=== PATIENT | female | born 1960 | race Two or more races ===

== ENCOUNTER 2019-11-01 11:58 | Inpatient (IN) | payer OTHER ==
[~2019-11-01] VITALS: Ht 160 cm; Wt 72.6 kg
[2019-11-01] MEDS ORDERED: CLONIDINE (12:21)
[2019-11-01] MEDS ORDERED: AMBIEN5 MG (12:22)
[2019-11-01] MEDS ORDERED: TOPROL XL25 M1 (12:22)
[2019-11-01] MEDS ORDERED: PROSCAR5 MG (12:23)
[2019-11-01] MEDS ORDERED: ASPIR 8181 MG (12:23)
[2019-11-05] MEDS ORDERED: CLONIDINE HCL0.1 MG (08:55)
[2019-11-09] MEDS ORDERED: TOPROL XL50 M1 PO (12:37)
[2019-11-09] MEDS ORDERED: ECOTRIN81 MG PO (12:39)
[2019-11-09] MEDS ORDERED: POLY119PG PO (12:40)
[2019-11-09] MEDS ORDERED: INTESTINEX680 M1 PO (12:40)
== END 2019-11-09 17:01 | disposition home or self-care (01) | DRG 392 ==
LOC: ER 11:58 → SEC-K 20:48 → SURG 20:48
PROVIDERS: ADMIT Internal Medicine; ATTEND Internal Medicine
PROC: BW21YZZ Computerized Tomography (CT Scan) of Abdomen and Pelvis using Other Contrast (ICD-10-PCS; principal; 2019-11-01)
PROC: 02HV33Z Insertion of Infusion Device into Superior Vena Cava, Percutaneous Approach (ICD-10-PCS; 2019-11-02)
PROC: 4A12X4Z Monitoring of Cardiac Electrical Activity, External Approach (ICD-10-PCS; 2019-11-05)
PROC: B24BZZZ Ultrasonography of Heart with Aorta (ICD-10-PCS; 2019-11-05)
DX: K57.32 Diverticulitis of large intestine without perforation or abscess without bleeding (principal); I48.0 Paroxysmal atrial fibrillation; Z20.828 Contact with and (suspected) exposure to other viral communicable diseases; Z79.01 Long term (current) use of anticoagulants

== ENCOUNTER 2020-01-18 20:17 | Emergency (ER) | payer OTHER ==
[~2020-01-18] VITALS: Ht 160 cm; Wt 0.5 kg
[~2020-01-18 20:17] MED LIST: AMBIEN5 MG; ASPIR 8181 MG; CLONIDINE; CLONIDINE HCL0.1 MG; ECOTRIN81 MG PO; INTESTINEX680 M1 PO; POLY119PG PO; PROSCAR5 MG; TOPROL XL25 M1; TOPROL XL50 M1 PO
[2020-01-18] MEDS ORDERED: PROTONIX40 MG PO (22:32)
[2020-01-18] MEDS ORDERED: CIPRO500 MG PO (22:32)
[2020-01-18] MEDS ORDERED: FLAGYL500MG PO (22:32)
[2020-01-18] MEDS ORDERED: DICY20TA PO (22:32)
== END 2020-01-18 22:28 | disposition home or self-care (01) ==
LOC: ER 20:17
DX: K57.32 Diverticulitis of large intestine without perforation or abscess without bleeding (principal); Z03.818 Encounter for observation for suspected exposure to other biological agents ruled out; R10.32 Left lower quadrant pain